=== PATIENT | female | born 1995 | race American Indian/Alaskan Native ===

== ENCOUNTER 2019-12-26 20:04 | Emergency (ER) | payer SELFPAY ==
[2019-12-26 21:02] VITALS: BP 118/49
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
== END 2019-12-26 22:00 | disposition home or self-care (01) ==
LOC: ED 20:04
DX: M79.18 Myalgia, other site (principal); V89.2XXA Person injured in unspecified motor-vehicle accident, traffic, initial encounter; Y93.89 Activity, other specified; Y92.410 Unspecified street and highway as the place of occurrence of the external cause; Y99.8 Other external cause status
CPT/HCPCS: 99281